=== PATIENT | female | born 1960 | race Caucasian/White ===

== ENCOUNTER 2023-08-12 20:25 | Inpatient (IN) ==
[2023-08-12] MEDS: IPRATROPIUM/ALBUTEROL 3 ML AMPUL.NEB NEB ONE (20:30)
[2023-08-12] MEDS ORDERED: IPRATROPIUM/ALBUTEROL 3 ML AMPUL.NEB NEB PRN (20:34)
[2023-08-12 20:46] LABS: POC Calcium, Ionized 1.01 (1.16-1.32); POC Creatinine 0.5 (0.6-1.2); POC Potassium 3.4 (3.3-5.1)
[2023-08-12] MEDS: MAGNESIUM SULFATE 2 GM/50 ML BAG IV ONE (20:58)
[2023-08-12] MEDS: SODIUM CHLORIDE IV ONE (20:58)
[2023-08-12] MEDS: methylPREDNISolone SOD SUCC 125 MG/2 ML VIAL IV ONE (21:11)
[2023-08-12 21:19] LABS: Basophils # (Auto) 0.03 K/mcL (0.00-0.30); Basophils % (Auto) 0.3 % (0.0-2.0); Eosinophils # (Auto) 0.09 K/mcL (0.00-0.70); Eosinophils % (Auto) 0.8 % (0.0-7.0); Hemoglobin 12.7 g/dL (11.2-15.7); Lymphocytes # (Auto) 1.24 K/mcL (1.50-4.80); Lymphocytes % (Auto) 10.7 % (15.5-49.0); Mean Cell Volume 97.6 fL (80.0-100.0); Mean Platelet Volume 11.2 fL (8.8-12.5); Monocytes # (Auto) 2.11 K/mcL (0.10-0.90); Monocytes % (Auto) 18.2 % (1.0-12.0); Neutrophils % (Auto) 69.8 % (38.0-78.0); Platelet Count 245 K/mcL (140-440); Red Cell Distribution Width 12.6 % (11.5-14.5); WBC 11.6 K/mcL (4.5-11.0)
[2023-08-12 21:39] LABS: ALT/SGPT 17 U/L (<40); AST/SGOT 29 U/L (<32); Albumin 4.2 gm/dL (3.2-5.2); Albumin/Globulin Ratio 1.1 (1.0-2.3); Alkaline Phosphatase 232 U/L (39-117); Bilirubin,Total 0.5 mg/dL (0.1-1.0); Blood Urea Nitrogen 14 mg/dL (8-23); Calcium 9.5 mg/dL (8.6-10.4); Carbon Dioxide 34 mmol/L (22-30); Chloride 96 mmol/L (96-108); Globulin 3.8 gm/dL (2.2-3.7); Glomerular Filtration Rate 104; Glucose 124 mg/dL (70-105)
[2023-08-12 21:49] LABS: INR 1.1 (0.9-1.1); Prothrombin Time 14.6 sec (11.9-14.5)
[2023-08-12] MEDS ORDERED: ONDANSETRON 4 MG/2 ML VIAL IV PRN (22:36)
[2023-08-12] MEDS: cefTRIAXone 1 GM VIAL IV ONE (22:40)
[2023-08-12] MEDS: AZITHROMYCIN 500 MG in DEXTROSE 5% IN WATER 250 ML IV ONE (22:59)
[2023-08-12] MEDS: IPRATROPIUM/ALBUTEROL 3 ML AMPUL.NEB NEB SCH (23:09)
[2023-08-13] MEDS: 0.9 % SODIUM CHLORIDE 10 ML SYRINGE IV SCH (00:10)
[2023-08-13] MEDS: AZITHROMYCIN 500 MG in DEXTROSE 5% IN WATER 250 ML IV ONE (06:19)
[2023-08-13] MEDS ORDERED: POLYETHYLENE GLYCOL 3350 17 GM PACKET PO PRN (07:54)
[2023-08-13] MEDS ORDERED: POTASSIUM CHLORIDE 20 MEQ TABLET PO PRN (07:54)
[2023-08-13] MEDS ORDERED: POTASSIUM CHLORIDE 40 MEQ in DEXTROSE 5% IN WATER 500 ML IV PRN (07:54)
[2023-08-13] MEDS ORDERED: MAGNESIUM SULFATE 2 GM/50 ML BAG IV PRN (07:54)
[2023-08-13] MEDS: ENOXAPARIN 30 MG/0.3 ML SYRINGE SQ SCH (08:19)
[2023-08-13] MEDS: VENLAFAXINE 150 MG CAP.XL.24H PO SCH (08:20)
[2023-08-13] MEDS: POTASSIUM CHLORIDE 20 MEQ TABLET PO PRN (08:20)
[2023-08-13] MEDS: HYDROCODONE/APAP 7.5/325MG TABLET PO PRN (08:20)
[2023-08-13] MEDS: OMEPRAZOLE 20 MG CAPSULE PO SCH (08:20)
[2023-08-13] MEDS: LISINOPRIL 20 MG TABLET PO SCH (08:21)
[2023-08-13] MEDS: DOCUSATE SODIUM 100 MG CAPSULE PO SCH (08:21)
[2023-08-13] MEDS: VENLAFAXINE 75 MG CAP.XL.24H PO SCH (08:21)
[2023-08-13] MEDS: IPRATROPIUM/ALBUTEROL 3 ML AMPUL.NEB NEB PRN (08:38)
[2023-08-13] MEDS: BUDESONIDE 0.5 MG/2 ML AMPUL.NEB NEB SCH (08:38)
[2023-08-13 08:40] LABS: Uric Acid 1.8 mg/dL (2.5-8.0)
[2023-08-13] MEDS: methylPREDNISolone SOD SUCC 125 MG/2 ML VIAL IV ONE (09:13)
[2023-08-13] MEDS: hydrALAZINE 20 MG/ML VIAL IV PRN (09:16)
[2023-08-13] MEDS ORDERED: METOPROLOL TARTRATE 5 MG/5 ML VIAL IV PRN (09:21)
[2023-08-13] MEDS: METOPROLOL TARTRATE 25 MG TABLET PO SCH (09:59)
[2023-08-13] MEDS: IPRATROPIUM/ALBUTEROL 3 ML AMPUL.NEB NEB SCH (12:55)
[2023-08-13] MEDS: methylPREDNISolone SOD SUCC 125 MG/2 ML VIAL IV SCH ×2 (14:40→22:13)
[2023-08-13] MEDS: AZITHROMYCIN 500 MG in DEXTROSE 5% IN WATER 250 ML IV SCH (14:41)
[2023-08-13] MEDS: ONDANSETRON 4 MG/2 ML VIAL IV PRN (15:13)
[2023-08-13] MEDS: guaiFENesin 600 MG TAB.SR.12H PO SCH (20:30)
[2023-08-13] MEDS: APIXABAN 5 MG TABLET PO SCH (20:30)
[2023-08-14 06:49] LABS: ALT/SGPT 8 U/L (<40); AST/SGOT 17 U/L (<32); Albumin 3.5 gm/dL (3.2-5.2); Albumin/Globulin Ratio 1.1 (1.0-2.3); Alkaline Phosphatase 169 U/L (39-117); Bilirubin,Direct < 0.2 mg/dL (0-0.3); Bilirubin,Total < 0.2 mg/dL (0.1-1.0); Blood Urea Nitrogen 23 mg/dL (8-23); Calcium 9.4 mg/dL (8.6-10.4); Carbon Dioxide 33 mmol/L (22-30); Chloride 100 mmol/L (96-108); Globulin 3.1 gm/dL (2.2-3.7); Glomerular Filtration Rate 98; Glucose 136 mg/dL (70-105); Lactate Dehydrogenase 141 U/L (135-225); Triglycerides 96 mg/dL (<150)
[2023-08-14] MEDS: SENNOSIDES 1 TABLET PO PRN (09:29)
[2023-08-14] MEDS: methylPREDNISolone SOD SUCC 125 MG/2 ML VIAL IV SCH (14:20)
[2023-08-15] MEDS: VENLAFAXINE 75 MG CAP.XL.24H PO SCH (08:20)
[2023-08-15] MEDS: LORazepam 2 MG/ML VIAL IV PRN (12:07)
[2023-08-15] MEDS: methylPREDNISolone SOD SUCC 40 MG/ML VIAL IV SCH (14:05)
[2023-08-16] MEDS: predniSONE 20 MG TABLET PO SCH (16:58)
[2023-08-17] MEDS: METOPROLOL TARTRATE 25 MG TABLET PO ONE (11:17)
[2023-08-17] MEDS: LISINOPRIL 20 MG TABLET PO ONE (11:17)
[2023-08-17] MEDS: METOPROLOL TARTRATE 25 MG TABLET PO SCH (20:12)
[2023-08-18] MEDS: LISINOPRIL 20 MG TABLET PO SCH (08:18)
[2023-08-18] MEDS: amLODIPine 5 MG TABLET PO SCH (10:01)
[2023-08-18] MEDS: NICOTINE 7 MG PATCH TOPICAL SCH (11:25)
[2023-08-18] MEDS: LORazepam 2 MG/ML VIAL IV PRN (23:24)
[2023-08-19] MEDS: predniSONE 20 MG TABLET PO SCH (08:04)
[2023-08-20] MEDS: CALCIUM CARBONATE 500 MG TAB.CHEW CHEWED PRN (12:51)
== END 2023-08-21 10:05 | DRG 189 ==
LOC: ED 20:25 → ICU 08-13 00:04 → MEDSUR 08-15 14:33
PROVIDERS: ADMIT Internal Medicine; ATTEND Internal Medicine